=== PATIENT | male | born 1940 | race Caucasian/White ===

== ENCOUNTER → 2016-11-24 | Outpatient (CLI) | payer OTHER | END | disposition home or self-care (01) | LOC: PCVCCLINIC 13:00 | PROVIDERS: ATTEND Internal Medicine Cardiovascular Disease | DX: I25.10 Atherosclerotic heart disease of native coronary artery without angina pectoris (principal); E78.5 Hyperlipidemia, unspecified; I10 Essential (primary) hypertension; E11.9 Type 2 diabetes mellitus without complications; R29.6 Repeated falls; R07.9 Chest pain, unspecified; R09.89 Other specified symptoms and signs involving the circulatory and respiratory systems | CPT/HCPCS: 80061; 93005; G0463 ==

== ENCOUNTER → 2017-02-03 | Outpatient (CLI) | payer OTHER ==
[~2017-02-03] MED LIST: REGADENOSON 0.4 MG/5 ML DISP.SYRIN. IV ONE
--- NOTE | 2017-02-03 09:57 | PCVCIMAG ---
EXAM: BILATERAL CAROTID DUPLEX INDICATION: Carotid Occlusive Disease. FINDINGS: Doppler Measurements (centimeters per second): RIGHT: Peak CCA-59, Peak ECA-125, Diastolic ICA-27, Peak ICA-107, ICA/CCA Ratio-1.8. LEFT: Peak CCA-83, Peak ECA-83, Diastolic ICA-25, Peak ICA-102, ICA/CCA Ratio-1.2. RIGHT CAROTID: The carotid bulb has moderate plaque. The proximal internal carotid artery shows <40% stenosis. The common carotid artery shows no significant stenosis. The external carotid artery shows no significant stenosis. LEFT CAROTID: The carotid bulb has moderate plaque. The proximal internal carotid artery shows <40% stenosis. The common carotid artery shows no significant stenosis. The external carotid artery shows no significant stenosis. Antegrade flow in both vertebral arteries. IMPRESSION: <40% stenosis of the right internal carotid artery with moderate plaque. <40% stenosis of the left internal carotid artery with moderate plaque. LOC:[place] [id number]
--- NOTE | 2017-02-04 13:33 | PCVCIMAG ---
APPROVED REPORT Exam: Nuclear Stress Test Indication: CAD Patient Location: Out-Patient Stress Nurse: Leatha Wills RN; Berna Griffin RN [place] Tech:Roel Amos NMTCB Ht: 6 ft 0 in Wt: 235 lbs BSA: 2.28 m2 HR: 63 bpm BP: 192/86 mmHg Rhythm: NSR; LBBB Medical History Medical History: AGE, CAD, PRIOR HI, HTN, HYPERCHOLESTEROLEMIA, DIABETES, FORMER SMOKER 2007 Medications: Lovastatin, Xarelto, Norvasc, Quinapril, Coreg (held 24 hours) Allergies: No known drug allergies Previous Cardiac Procedures: PCI, Myocardial infarction Pretest Chest Pain Characteristics: No chest pain Exercise History: Sedentary Physical Disabilities: Back NM EXAM: Myocardial Perfusion REST/STRESS Imaging Protocol: Rest Tc-99m/Stress Tc-99m 1 day Resting Data Rest SPECT myocardial perfusion imaging was performed in supine position 45 minutes following the intravenous injection of 11.9 mCi of Tc-99m Sestamibi. Time of rest injection: 0910 Date: 02/03/2017 Pharmacologic Stress Pharmacologic stress test was performed by injecting Regadenoson 0.4 mg IV push followed by the intravenous injection of 34.3 mCi of Tc-99m Sestamibi. Time of stress injection: 1100 Date: 02/03/2017 The images were gated to evaluate regional wall motion and calculate left ventricular ejection fraction. Study Quality Study: Good Study Data Post stress, the left ventricular ejection was 30%.. SSS: 6 SRS: 7 SDS: 0 TID = 1.08. 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 No evidence of stress induced ischemia. Wall Motion Moderately decreased left ventricular systolic function. 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 No evidence of stress induced ischemia. Moderately decreased left ventricular systolic function. No prior study available for comparison. Interpreted by: Joshua Patel MD Electronically Approved: 02/03/2017 15:53:42 Stress Test Details Stress Test: Pharmacologic stress testing performed using 0.4 mg of regadenoson per 5 mL given IV over 10 seconds. Reason for pharmacologic stress test: physical limitation. HR Resting HR: 66 bpmMax Heart Rate (APMHR): 141 bpm Max HR Achieved: 84 bpmTarget HR (85% APMHR): 119 bpm % of APMHR: 59 Recovery HR: 72 bpm BP Resting BP: 192/86 mmHg Max BP: 192/86 mmHg Recovery BP: 174/84 mmHg ECG Resting ECG: Sinus Rhythm LBBB Recovery ECG: Sinus Rhythm, LBBB Recovery ST Deviation: 1.6 mm Clinical Reason for Termination: Completed protocol Stress Symptoms: dyspnea, Symptoms resolved during recovery. Stress ECG Conclusion non diagnostic LBBB <Conclusion> non diagnostic LBBB
== END | disposition home or self-care (01) ==
LOC: PCVCIMAG 08:25
PROVIDERS: ATTEND Internal Medicine Cardiovascular Disease
DX: Z01.818 Encounter for other preprocedural examination (principal); I65.23 Occlusion and stenosis of bilateral carotid arteries; I25.10 Atherosclerotic heart disease of native coronary artery without angina pectoris; I10 Essential (primary) hypertension; I25.2 Old myocardial infarction; E78.00 Pure hypercholesterolemia, unspecified; E11.9 Type 2 diabetes mellitus without complications; Z87.891 Personal history of nicotine dependence
CPT/HCPCS: 78452; 93017; 93880; A9500; G0463; J2785

== ENCOUNTER → 2017-09-19 | Outpatient (CLI) | payer OTHER | END | disposition home or self-care (01) | LOC: PCVCCLINIC 13:30 | DX: I25.10 Atherosclerotic heart disease of native coronary artery without angina pectoris (principal); I10 Essential (primary) hypertension; E78.2 Mixed hyperlipidemia; I77.9 Disorder of arteries and arterioles, unspecified; E11.9 Type 2 diabetes mellitus without complications; R94.31 Abnormal electrocardiogram [ECG] [EKG]; I44.7 Left bundle-branch block, unspecified; Z87.891 Personal history of nicotine dependence; Z79.899 Other long term (current) drug therapy; Z79.82 Long term (current) use of aspirin | CPT/HCPCS: 80061; 93005; G0463 ==

== ENCOUNTER → 2018-03-30 | Outpatient (CLI) | payer OTHER | END | disposition home or self-care (01) | LOC: PCVCCLINIC 13:52 | DX: I25.10 Atherosclerotic heart disease of native coronary artery without angina pectoris (principal); I10 Essential (primary) hypertension; E78.2 Mixed hyperlipidemia; I26.99 Other pulmonary embolism without acute cor pulmonale; I25.2 Old myocardial infarction; E11.9 Type 2 diabetes mellitus without complications; I77.9 Disorder of arteries and arterioles, unspecified; I25.5 Ischemic cardiomyopathy; R94.31 Abnormal electrocardiogram [ECG] [EKG]; Z88.8 Allergy status to other drugs, medicaments and biological substances; Z79.899 Other long term (current) drug therapy; Z87.891 Personal history of nicotine dependence; Z79.82 Long term (current) use of aspirin; Z79.84 Long term (current) use of oral hypoglycemic drugs | CPT/HCPCS: 80061; 93005; G0463 ==

== ENCOUNTER → 2018-04-17 | Outpatient (CLI) | payer OTHER ==
--- NOTE | 2018-04-17 11:04 | PCVCIMAG ---
APPROVED REPORT Study performed: 04/17/2018 08:49:01 EXAM: Comprehensive 2D, Doppler, and color-flow Echocardiogram Patient Location: Echo lab Status: routine BSA: 2.26 HR: 72 bpmBP: 150/68 mmHg Rhythm: NSR Other Information Study Quality: Adequate Risk Factors: Cardiac Risk Factors: HTN, Hyperlipidemia, DM Indications CAD Cardiomyopathy Myocardial Infarction 2D Dimensions LVEF(%): 34.84 (>50%) IVSd: 11.99 (7-11mm)LVOT Diam: 21.00 (18-24mm) LVDd: 51.44 mm PWd: 14.16 (7-11mm)Ascending Ao: 30.37 (22-36mm) LVDs: 42.83 (25-40mm) Left Atrium: 40.80 (27-40mm) Aortic Root: 30.88 mm LV Single Plane 4CH: 29.05 % LV Single Plane 2CH: 38.21 %Matson's LVEF: 33.63 % Biplane EF: 32.2 % Volumes Left Atrial Volume (Systole) Single Plane 4CH: 52.65 mLSingle Plane 2CH: 53.59 mL LA ESV Index: 28.00 mL/m2 Aortic Valve AoV Peak Lupillo.: 1.68 m/s AO Peak Gr.: 11.26 mmHgLVOT Max P.00 mmHg LVOT Max V: 0.98 m/s KARMEN Vmax: 2.09 cm2 Mitral Valve E/A Ratio: 0.5 MV Decel. Time: 221.08 ms MV E Max Lupillo.: 0.70 m/s MV A Lupillo.: 1.30 m/s IVRT: 65.74 ms TDI E/Lateral E': 10.00E/Medial E': 14.00 Medial E' Lupillo.: 0.05 m/s Lateral E' Lupillo.: 0.07 m/s Pulmonary Valve PV Peak Lupillo.: 1.28 m/sPV Peak Gr.: 6.57 mmHg Pulmonary Vein P Vein S: 0.57 m/sP Vein A: 0.28 m/s P Vein D: 0.25 m/sP Vein A Dur.: 124.6 msec P Vein S/D Ratio: 2.28 Tricuspid Valve RAP Estimate: 7.00 mmHg Left Ventricle Left ventricle is at the upper limits of normal. There is global hypokinesis of the left ventricle. Mild concentric left ventricular hypertrophy. Left ventricular systolic function is moderately decreased. LVEF is 30-35%. Grade I - abnormal relaxation pattern. Right Ventricle The right ventricle is normal size. The right ventricular systolic function is normal. Atria The left atrium size is normal. The right atrium size is normal. Aortic Valve The Aortic valve is sclerotic. No aortic regurgitation is present. There is no aortic valvular stenosis. Mitral Valve There is mitral annular calcification. Trace mitral regurgitation. No evidence of mitral valve stenosis. Tricuspid Valve The tricuspid valve is normal in structure. There is no tricuspid valve regurgitation noted. Pulmonic Valve Pulmonic valve is not well visualized. Great Vessels The aortic root is normal in size. IVC is normal in size and collapses >50% with inspiration. Pericardium There is no pericardial effusion. <Conclusion> Left ventricle is at the upper limits of normal. Left ventricular systolic function is moderately decreased. There is global hypokinesis of the left ventricle. LVEF is 30-35%. Grade I - abnormal relaxation pattern. The right ventricle is normal size. The left atrium size is normal. The Aortic valve is sclerotic. There is no aortic valvular stenosis. Trace mitral regurgitation. There is no tricuspid valve regurgitation noted. The aortic root is normal in size. There is no pericardial effusion.
== END | disposition home or self-care (01) ==
LOC: PCVCIMAG 15:58
PROVIDERS: ATTEND Internal Medicine Cardiovascular Disease
DX: I25.10 Atherosclerotic heart disease of native coronary artery without angina pectoris (principal); E11.9 Type 2 diabetes mellitus without complications; I25.5 Ischemic cardiomyopathy; I10 Essential (primary) hypertension; I21.9 Acute myocardial infarction, unspecified
CPT/HCPCS: 93306

== ENCOUNTER → 2018-12-18 | Outpatient (CLI) | payer MEDICARE, OTHER | END | disposition home or self-care (01) | LOC: PCVCCLINIC 11:20 | PROVIDERS: ATTEND Internal Medicine Cardiovascular Disease | DX: I25.10 Atherosclerotic heart disease of native coronary artery without angina pectoris (principal); I25.5 Ischemic cardiomyopathy; I10 Essential (primary) hypertension; E78.2 Mixed hyperlipidemia; E11.9 Type 2 diabetes mellitus without complications; Z87.891 Personal history of nicotine dependence; Z79.82 Long term (current) use of aspirin; Z79.899 Other long term (current) drug therapy | CPT/HCPCS: 36415; 80061; 93005; G0463 ==

== ENCOUNTER → 2019-06-29 | Outpatient (CLI) | payer MEDICARE, MEDICAID ==
--- NOTE | 2019-06-29 14:43 | PCVCIMAG ---
APPROVED REPORT Study performed: 06/29/2019 13:11:38 EXAM: Comprehensive 2D, Doppler, and color-flow Echocardiogram Patient Location: Echo lab Room #: 1Status: routine BSA: 2.26 HR: 61 bpmBP: 142/80 mmHg Rhythm: NSR Other Information Study Quality: Adequate Technically limited study due to inability to position patient, body habitus. Risk Factors: Cardiac Risk Factors: HTN, Hyperlipidemia, DM Indications CAD Cardiomyopathy 2D Dimensions IVSd: 12.42 (7-11mm)LVOT Diam: 21.00 (18-24mm) LVDd: 48.47 mm PWd: 14.49 (7-11mm) LVDs: 39.31 (25-40mm) LV Single Plane 4CH: 32.94 % LV Single Plane 2CH: 33.63 % Biplane EF: 30.6 % Volumes Left Atrial Volume (Systole) Single Plane 4CH: 34.15 mLSingle Plane 2CH: 42.10 mL LA ESV Index: 17.00 mL/m2 Aortic Valve AoV Peak Lupillo.: 1.58 m/s AO Peak Gr.: 10.01 mmHgLVOT Max P.79 mmHg LVOT Max V: 0.84 m/s KARMEN Vmax: 1.88 cm2 Mitral Valve E/A Ratio: 0.4 MV Decel. Time: 223.67 ms MV E Max Lupillo.: 0.54 m/s MV A Lupillo.: 1.22 m/s IVRT: 65.74 ms TDI E/Lateral E': 13.50E/Medial E': 18.00 Medial E' Lupillo.: 0.03 m/s Lateral E' Lupillo.: 0.04 m/s Pulmonary Vein P Vein S: 0.37 m/sP Vein A: 0.30 m/s P Vein D: 0.47 m/sP Vein A Dur.: 117.6 msec P Vein S/D Ratio: 0.79 Left Ventricle The left ventricle is normal size. Global hypokinesis of left ventricle. Mild concentric left ventricular hypertrophy. Left ventricular systolic function is moderately decreased. LVEF is 30-35%. Mild diastolic dysfunction is present (impaired relaxation pattern). Right Ventricle The right ventricle is normal size. The right ventricular systolic function is normal. Atria The left atrium size is normal. The right atrium size is normal. Aortic Valve The Aortic valve is sclerotic. No aortic regurgitation is present. There is no aortic valvular stenosis. Mitral Valve There is mitral annular calcification. There is no mitral valve regurgitation noted. No evidence of mitral valve stenosis. Tricuspid Valve The tricuspid valve is normal in structure. There is no tricuspid valve regurgitation noted. Pulmonic Valve The pulmonic valve is not well visualized. There is no pulmonic valvular regurgitation. Great Vessels The aortic root is normal in size. IVC is not well visualized. Pericardium There is no pericardial effusion. <Conclusion> Global hypokinesis of left ventricle. Mild concentric left ventricular hypertrophy. LVEF is 30-35%. Mild diastolic dysfunction is present (impaired relaxation pattern). The right ventricle is normal size. The left atrium size is normal. The Aortic valve is sclerotic. There is no aortic valvular stenosis. There is mitral annular calcification. There is no mitral valve regurgitation noted. There is no tricuspid valve regurgitation noted. The aortic root is normal in size. There is no pericardial effusion.
== END | disposition home or self-care (01) ==
LOC: PCVCIMAG 13:08
PROVIDERS: ATTEND Internal Medicine Cardiovascular Disease
DX: I35.0 Nonrheumatic aortic (valve) stenosis (principal); I25.10 Atherosclerotic heart disease of native coronary artery without angina pectoris; I25.5 Ischemic cardiomyopathy; I10 Essential (primary) hypertension; I25.2 Old myocardial infarction; E78.2 Mixed hyperlipidemia; E11.9 Type 2 diabetes mellitus without complications; I65.23 Occlusion and stenosis of bilateral carotid arteries; I87.2 Venous insufficiency (chronic) (peripheral); Z87.891 Personal history of nicotine dependence; Z88.8 Allergy status to other drugs, medicaments and biological substances; Z79.84 Long term (current) use of oral hypoglycemic drugs; Z79.899 Other long term (current) drug therapy
CPT/HCPCS: 36415; 80061; 93005; 93306; G0463